=== PATIENT | male | born 1950 | race Caucasian/White ===

== ENCOUNTER 2025-03-05 12:20 | Outpatient (CLI) | payer MEDICARE, SELFPAY ==
--- NOTE | 2025-03-05 13:45 | CT_ITS ---
FINAL REPORT TECHNIQUE: Thin section axial images were obtained from the lung apices to the upper abdomen by computed tomography. Reformatted images were obtained and reviewed. This study was performed with techniques to keep radiation doses al low as reasonably achievable (ALARA). Individualized dose reduction techniques using automated exposure control or adjustment of mA and/or kV according to the patient's size were employed. CLINICAL HISTORY: lung cancer screening smoker 8 cigars a day x 50 years COMPARISON: None FINDINGS: CHEST CT LOW DOSE 74-year-old male, cigar smoker, 400 lifetime cigars CTDI vol (mGy): 2.90 DLP (mGy-cm): 116.72 There is no axillary adenopathy. There is no mediastinal or hilar mass or adenopathy. The heart is normal in size. There is a large loculated fluid collection in the inferior right hemithorax with overlying atelectasis. There is consolidation in the medial lung base with associated pleural calcification. A small amount of fluid is present in the left major fissure as well. Lung window images demonstrate no suspicious infiltrate or nodule. Limited images of the upper abdomen are unremarkable. IMPRESSION: Lung-RADS category 0. Recommend follow-up contrast-enhanced CT examination of the chest. In addition, diagnostic and therapeutic thoracentesis may be of benefit in diagnosis. Reviewed, Interpreted and Dictated by Chuck Quintana MD Transcribed by Deidre Goff Authenticated and . [facility]
== END 2025-03-05 23:59 | disposition home or self-care (01) ==
LOC: RAD 12:20
PROVIDERS: PCP Family Medicine; Visit Provider Family Medicine
DX: Z12.2 Encounter for screening for malignant neoplasm of respiratory organs (principal); F17.210 Nicotine dependence, cigarettes, uncomplicated
CPT/HCPCS: 71271

== ENCOUNTER 2025-03-22 12:53 | Outpatient (CLI) | payer MEDICARE, SELFPAY ==
[2025-03-22 13:20] LABS: Blood Urea Nitrogen 14 mg/dl (9-20); Creatinine,Serum 1.00 mg/dl (0.66-1.25); Estimated Glomerular Filt Rate 73 ml/min (>60); GFR (African American) 88 ML/MIN (>60)
[2025-03-22] MEDS: SODIUM CHLORIDE 0.9% 10ML SYR (RAD ONLY) 10 ML IV (13:51)
[2025-03-22] MEDS: IOPAMIDOL-370 (76%);100ML BOTTLE 75 ML IV (13:51)
--- NOTE | 2025-03-22 14:00 | CT_ITS ---
FINAL REPORT TECHNIQUE: Thin section axial images were obtained from the thoracic inlet through the upper abdomen after intravenous contrast injection. Reconstruction images were obtained from the axial data. Exam was performed using dose reduction technique. CLINICAL HISTORY: right pleural effusion; f/u from low dose lung CT COMPARISON: 03/05/2025 LDCT FINDINGS: There is no hilar or axillary lymphadenopathy. There is an enlarged subcarinal lymph node measuring 3 cm in diameter. There is a large partially loculated right pleural effusion along with a small left pleural effusion. No pericardial effusion is identified. There are ground glass opacities in the right upper lobe, with airspace disease in the right middle lobe and right lower lobe that are likely atelectasis. Mild left lower lobe atelectasis is present as well. No discrete pulmonary masses identified. There is a small amount of perihepatic ascites. There is gallbladder wall thickening, which is nonspecific in the setting of ascites. No acute osseous abnormality. IMPRESSION: 1. Large partially loculated right pleural effusion, with areas of atelectasis in the right lung. There is a small left pleural effusion as well. 2. 3 cm subcarinal node is identified. 3. There is a small amount of perihepatic ascites, with gallbladder wall thickening, which is nonspecific with ascites. Reviewed, Interpreted and Dictated by Татьяна Martinez MD Transcribed by Deidre Goff Authenticated and [facility]
== END 2025-03-22 23:59 | disposition home or self-care (01) ==
LOC: RAD 12:53
PROVIDERS: PCP Family Medicine; Visit Provider Family Medicine
DX: J90 Pleural effusion, not elsewhere classified (principal); J98.11 Atelectasis; R59.0 Localized enlarged lymph nodes; R18.8 Other ascites; K82.8 Other specified diseases of gallbladder
CPT/HCPCS: 36415; 71260; 82565; 84520; Q9967